=== PATIENT | female | born 1980 | race Caucasian/White ===

== ENCOUNTER 2022-12-18 13:34 | Outpatient (AMB) | payer OTHER, SELFPAY ==
--- NOTE | 2022-12-18 13:47 | MHC.OFFVIS ---
Intake Intake Visit Reasons: Lumbar radiculopathy Director Of Strategic Partnerships Required: No Assessment & Plan Assessment & Plan (1) Back pain: Code(s): M54.9 - Dorsalgia, unspecified Plan Dear Balwinder Thank you for referring Ms Khan to our office today. She is a 42-year-old female who had a previous anterior lumbar interbody fusion at L4-[address] Doran for back pain. She did very well after that surgery until about a year or so ago she started to develop back pain across her lower lumbar region. She will also get pain and numbness into her legs, left greater than right. It goes down into her calves. It is worse with standing. 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 She takes Tylenol, Motrin heating pads at the end of the day just to try to help things out. She will do stretching exercises as well. She has not yet done any formal physical therapy. She has had no cortisone injections. 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 PMH: History of recent robotic ventral hernia repair., migraines, carpal tunnel, anxiety, gestational diabetes, hyperlipidemia, obesity, cholecystitis Social hx: She recently quit smoking Medications: She takes no regular medications other than the Tylenol and Motrin she takes at the end of the night Allergies: Codeine gave her the sweats, she lists aspirin as an allergy but does not believe that she has an actual allergy to this but it was in the codeine that she took Physical exam: Intact strength, reflexes and gait Imaging review: She has an MRI done in October of 2022 at [facility] [place]. She also has x-rays and an abdominal is a CT scan. This shows that she has severe collapse of the disc at L5-S1 below her fusion. There is bilateral neural foraminal stenosis. She has a solid fusion at the L4-5 construct. 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 She has been trying [id number] medications, rest and activity modifications. She has not yet been to any physical therapy or any cortisone shots. Typically this is something we would treat with an anterior lumbar interbody fusion, but because of possible scar tissue and her recent surgery and a ventral hernia we will have to consult Dr. Christensen our approach surgeon to see if this is something he thinks is feasible. A backup option could be a transforaminal lumbar interbody fusion. Before we can consider this however, I am sure her insurance company will require her to complete physical therapy so I have given her prescription for that. She is going to attempt to do it, but I told her not to torture herself if it becomes too painful just to discontinue it. She will continue on the Tylenol and Motrin for now and once I have a chance to have Dr. Vega review her films will call her back with a final plan. Thank you for allowing us to care for your patient. The total time spent with this visit with this patient was 45 minutes reviewing history, physical exam, lumbar imaging review, and implementation of treatment plan or further diagnostic testing Nabeel Vega MD,PhD [facility] [place] Orders: Orders PT Evaluation and Treatment Today M54.9 - Dorsalgia, unspecified Coding Level of Care Code New Pt Level 4 (48318) Diagnoses Back pain M54.9
== END 2022-12-18 15:22 | disposition home or self-care (01) ==
PROVIDERS: PCP Internal Medicine; Referring Provider Physician Assistant; Visit Provider Physician Assistant
DX: M54.9 Dorsalgia, unspecified (principal)
CPT/HCPCS: 99204

== ENCOUNTER → 2022-12-18 13:34 | Outpatient (BNVA) | payer OTHER, SELFPAY | PROVIDERS: PCP Internal Medicine; Referring Provider Physician Assistant; Visit Provider Physician Assistant | DX: M54.9 Dorsalgia, unspecified (principal) | CPT/HCPCS: 99202 ==